=== PATIENT | male | born 1960 | race African-American/Black ===

== ENCOUNTER 2016-12-04 01:26 | Emergency (ER) | payer MEDICAID, OTHER ==
[2016-12-04] MEDS ORDERED: Adacel (T-DAP) 0.5 ML VIAL ONE (01:51)
[2016-12-04] MEDS ORDERED: Acetaminophen 500 MG TAB ONE (01:53)
[2016-12-04] MEDS ORDERED: Ketorolac Tromethamine 60 MG/2 ML VIAL ONE (01:53)
[2016-12-04] MEDS ORDERED: Silver Sulfadiazine 1% Cream 50 GM JAR ONE (01:53)
== END 2016-12-04 02:50 | disposition home or self-care (01) ==
LOC: NAV ERS 01:26
DX: T22.312A Burn of third degree of left forearm, initial encounter (principal); T22.122A Burn of first degree of left elbow, initial encounter; E78.5 Hyperlipidemia, unspecified; I10 Essential (primary) hypertension; Z87.891 Personal history of nicotine dependence; Z79.891 Long term (current) use of opiate analgesic; Z79.82 Long term (current) use of aspirin; Z79.899 Other long term (current) drug therapy; W86.8XXA Exposure to other electric current, initial encounter
CPT/HCPCS: 16000; 90471; 90715; 96372; J1885

== ENCOUNTER 2017-04-17 13:40 | Emergency (ER) | payer OTHER | END 2017-04-17 14:24 | disposition home or self-care (01) | LOC: NAV ERS 13:40 | DX: J06.9 Acute upper respiratory infection, unspecified (principal); E78.5 Hyperlipidemia, unspecified; I10 Essential (primary) hypertension; Z87.891 Personal history of nicotine dependence; Z79.82 Long term (current) use of aspirin; Z79.899 Other long term (current) drug therapy; Z79.891 Long term (current) use of opiate analgesic | CPT/HCPCS: 99283 ==

== ENCOUNTER 2017-04-19 07:13 | Emergency (ER) | payer OTHER ==
[2017-04-19] MEDS ORDERED: Magnesium Sulfate 2 GM/NS 0.9% 50 ML BAG ONE (07:34)
[2017-04-19] MEDS ORDERED: Magnesium Citrate 300 ML BOT ONE (07:34)
== END 2017-04-19 07:44 | disposition home or self-care (01) ==
LOC: NAV ERS 07:13
DX: K59.00 Constipation, unspecified (principal); E78.5 Hyperlipidemia, unspecified; I10 Essential (primary) hypertension; Z87.891 Personal history of nicotine dependence; Z79.891 Long term (current) use of opiate analgesic; Z79.82 Long term (current) use of aspirin; Z79.899 Other long term (current) drug therapy
CPT/HCPCS: 99283; J3475

== ENCOUNTER 2019-07-22 22:25 | Emergency (ER) | payer OTHER | END 2019-07-22 22:50 | disposition home or self-care (01) | LOC: NAV ERS 22:25 | DX: K59.00 Constipation, unspecified (principal); E78.5 Hyperlipidemia, unspecified; E78.00 Pure hypercholesterolemia, unspecified; I10 Essential (primary) hypertension; Z87.891 Personal history of nicotine dependence | CPT/HCPCS: 99281 ==

== ENCOUNTER 2022-02-15 08:19 | Emergency (ER) | payer OTHER ==
[2022-02-15] MEDS ORDERED: methylPREDNISolone Acetate 40 mg/ml Vial ONE (08:50)
== END 2022-02-15 09:10 | disposition home or self-care (01) ==
LOC: NAV ER/OP 08:19
DX: K12.2 Cellulitis and abscess of mouth (principal); E78.00 Pure hypercholesterolemia, unspecified; I10 Essential (primary) hypertension; Z87.891 Personal history of nicotine dependence; E11.9 Type 2 diabetes mellitus without complications; Z79.84 Long term (current) use of oral hypoglycemic drugs
CPT/HCPCS: 96372; 99283; J2920

== ENCOUNTER 2023-10-15 11:59 | Outpatient (CLI) | payer OTHER | END 2023-10-15 12:00 | disposition home or self-care (01) | LOC: NAV RAD 11:59 | PROVIDERS: ATTEND Family Medicine | DX: M54.2 Cervicalgia (principal); M47.812 Spondylosis without myelopathy or radiculopathy, cervical region; M25.78 Osteophyte, vertebrae | CPT/HCPCS: 72040 ==

== ENCOUNTER 2023-11-26 11:09 | Outpatient (CLI) | payer OTHER | END 2023-11-26 11:10 | disposition home or self-care (01) | LOC: NAV RAD 11:09 | PROVIDERS: ATTEND Family Medicine | DX: M25.571 Pain in right ankle and joints of right foot (principal); M19.071 Primary osteoarthritis, right ankle and foot; M77.51 Other enthesopathy of right foot and ankle; Z98.890 Other specified postprocedural states ==

== ENCOUNTER 2024-04-11 12:56 | Emergency (ER) | payer OTHER ==
[2024-04-11] MEDS ORDERED: Lidocaine Viscous Sol 2% 15 ml UD Cup ONE (14:00)
== END 2024-04-11 14:37 | disposition home or self-care (01) ==
LOC: NAV ERS 12:56
DX: K59.00 Constipation, unspecified (principal); I10 Essential (primary) hypertension; E11.9 Type 2 diabetes mellitus without complications; Z87.891 Personal history of nicotine dependence
CPT/HCPCS: 99283